=== PATIENT | female | born 1940 | race Caucasian/White ===

== ENCOUNTER 2019-05-26 18:51 | Inpatient (IN) ==
[2019-05-26] MEDS ORDERED: DOCUSATE SODIUM 100 MG CAPSULE PO PRN (22:53)
[2019-05-26] MEDS ORDERED: ACETAMINOPHEN 325 MG TABLET PO PRN (22:53)
[2019-05-26] MEDS ORDERED: ONDANSETRON 4 MG/2 ML VIAL IV PRN (22:53)
[2019-05-26] MEDS ORDERED: MAGNESIUM SULF RIDER 4 GM in PREMIX 1 EACH IV PRN (23:17)
[2019-05-26] MEDS ORDERED: MAGNESIUM SULF RIDER 2 GM in PREMIX 1 EACH IV PRN (23:17)
[2019-05-26 23:47] LABS: Thyroid Stimulating Hormone 2.36 uIU/ml (0.358-3.74)
[2019-05-27 02:05] LABS: Apearance,Urine CLOUDY (Clear); Bacteria,Urine Many /HPF (Few); Bilirubin,Urine Negative (Negative); Blood, Urine Moderate mg/dL (Negative); Glucose,Urine (UA) Negative (Negative); Ketones,Urine Negative (Negative); Mucus,Urine Many /LPF (Occasional); Nitrite,Urine Negative (Negative); Protein,Urine 30 MG/DL; Renal Epithelial Cells,Urine Many /HPF (<1); Squamous Epithelial Cell,Urine Occasional /HPF (0-10); Urine Color Amber (Yellow); Urine Specific Gravity 1.019 (1.001-1.035); WBC,Urine 322 /HPF (0-6)
[2019-05-27 03:18] LABS: Basophils % 0.7 % (0.0-0.8); Eosinophils # 0.3 10*3/uL (0.0-0.87); Eosinophils % 4.5 % (0.00-10.9); Hematocrit 35.4 VOL% (35.7-47.0); Hemoglobin 12.6 GM/DL (12.0-16.0); Immature Granulocytes % 0.5 %; Immature Granulocytes Absolute 0.03 #; Lymphocytes # 1.8 10*3/uL (1.4-4.0); Lymphocytes % 32.5 % (21.3-54.2); Mean Corpuscular HGB Conc 35.6 GM/DL (32-36); Mean Corpuscular Volume 100.3 FL (87-102); Mean Platelet Volume 10.2 FL (9.6-12.0); Monocytes % 17.5 % (1.7-12.7); NRBC # 0.02 10*3/uL; Neutrophils % 44.3 % (38.7-73.9); Platelet Count 109 T/CUMM (130-400); Red Blood Count 3.53 MC/CUMM (3.8-5.5); Red Cell Distribution Width 18.6 % (9.3-17.3); White Blood Count 5.6 T/CUMM (4-12)
[2019-05-27 03:47] LABS: Eosinophils 5 % (0-10); Total Cells Counted 100
[2019-05-27 03:48] LABS: Band Neutrophils 3 % (0-10); Hypochromasia 1+; Lymphocytes 30 % (20-55); Platelet Estimate Decreased; Segmented Neutrophils 48 % (50-85)
[2019-05-27 03:56] LABS: Albumin 2.2 G/DL (3.4-5.0); Calcium 8.5 MG/DL (8.5-10.1); Total Protein 5.5 G/DL (6.4-8.3)
[2019-05-27] MEDS: cefTRIAXone 1,000 MG in SYRINGE 1 EACH IV SCH (08:47)
[2019-05-27] MEDS: SODIUM CHLORIDE 0.9% 1,000 ML IV SCH ×3 (08:49→20:28)
[2019-05-27] MEDS ORDERED: MORPHINE 4 MG/1 ML VIAL IV PRN (13:21)
[2019-05-27] MEDS ORDERED: HALOPERIDOL 5 MG/ML AMP IV PRN (13:21)
[2019-05-27] MEDS ORDERED: diphenhydrAMINE 50 MG/1 ML VIAL IV PRN (13:23)
[2019-05-27] MEDS ORDERED: POTASSIUM CHLORIDE 20 MEQ TABLET PO ONE (16:12)
[2019-05-27] MEDS: POTASSIUM CHLORIDE 20 MEQ TABLET PO SCH (17:10)
[2019-05-27] MEDS: ENOXAPARIN 40 MG/0.4 ML SYRINGE SUBCUT SCH (17:33)
[2019-05-28 04:35] LABS: Basophils % 0.8 % (0.0-0.8); Eosinophils # 0.3 10*3/uL (0.0-0.87); Eosinophils % 5.4 % (0.00-10.9); Hemoglobin 11.9 GM/DL (12.0-16.0); Immature Granulocytes % 0.4 %; Immature Granulocytes Absolute 0.02 #; Lymphocytes # 1.9 10*3/uL (1.4-4.0); Lymphocytes % 38.8 % (21.3-54.2); Mean Corpuscular Volume 100.9 FL (87-102); Mean Platelet Volume 11.3 FL (9.6-12.0); Neutrophils % 36.6 % (38.7-73.9); Platelet Count 104 T/CUMM (130-400); Red Blood Count 3.37 MC/CUMM (3.8-5.5); Red Cell Distribution Width 18.7 % (9.3-17.3); White Blood Count 4.8 T/CUMM (4-12)
[2019-05-28 04:50] LABS: Calcium 8.1 MG/DL (8.5-10.1); Osmolality,Calculated 281.1 MOS/KG (273-304)
[2019-05-28 04:59] LABS: Eosinophils 6 % (0-10); Hypochromasia 1+; Lymphocytes 38 % (20-55); Platelet Estimate Decreased; Segmented Neutrophils 45 % (50-85); Total Cells Counted 100
[2019-05-28] MEDS: cefTRIAXone 1,000 MG in SYRINGE 1 EACH IV SCH (08:25)
[2019-05-28] MEDS: POTASSIUM CHLORIDE 20 MEQ TABLET PO SCH (08:26)
[2019-05-28] MEDS: SODIUM CHLORIDE 0.9% 1,000 ML IV SCH ×3 (09:49→22:42)
[2019-05-28] MEDS: FUROSEMIDE 20 MG/2 ML VIAL IV SCH (17:28)
[2019-05-28] MEDS: ENOXAPARIN 40 MG/0.4 ML SYRINGE SUBCUT SCH (17:29)
[2019-05-29] MEDS: cefTRIAXone 1,000 MG in SYRINGE 1 EACH IV SCH (08:45)
[2019-05-29] MEDS: POTASSIUM CHLORIDE 20 MEQ TABLET PO SCH (08:46)
[2019-05-29] MEDS: FUROSEMIDE 20 MG/2 ML VIAL IV SCH (08:46)
[2019-05-29] MEDS: LEVOTHYROXINE 25 MCG TABLET PO SCH (08:46)
[2019-05-29] MEDS: SODIUM CHLORIDE 0.9% 1,000 ML IV SCH ×2 (12:49→20:59)
[2019-05-29] MEDS: ENOXAPARIN 40 MG/0.4 ML SYRINGE SUBCUT SCH (17:34)
[2019-05-30] MEDS: SODIUM CHLORIDE 0.9% 1,000 ML IV SCH (06:58)
[2019-05-30] MEDS: LEVOTHYROXINE 25 MCG TABLET PO SCH (06:59)
[2019-05-30] MEDS: cefTRIAXone 1,000 MG in SYRINGE 1 EACH IV SCH (09:46)
[2019-05-30] MEDS: POTASSIUM CHLORIDE 20 MEQ TABLET PO SCH (09:46)
[2019-05-30] MEDS: FUROSEMIDE 20 MG/2 ML VIAL IV SCH (09:46)
[2019-05-30 10:32] LABS: Basophils # 0.1 10*3/uL (0.0-0.2); Basophils % 1.1 % (0.0-0.8); Eosinophils # 0.4 10*3/uL (0.0-0.87); Eosinophils % 7.8 % (0.00-10.9); Hematocrit 36.3 VOL% (35.7-47.0); Hemoglobin 12.9 GM/DL (12.0-16.0); Immature Granulocytes % 0.2 %; Immature Granulocytes Absolute 0.01 #; Lymphocytes # 1.8 10*3/uL (1.4-4.0); Lymphocytes % 40.5 % (21.3-54.2); Mean Corpuscular HGB Conc 35.5 GM/DL (32-36); Mean Corpuscular Volume 101.4 FL (87-102); Mean Platelet Volume 10.5 FL (9.6-12.0); Monocytes % 15.4 % (1.7-12.7); Platelet Count 110 T/CUMM (130-400); Red Blood Count 3.58 MC/CUMM (3.8-5.5); Red Cell Distribution Width 19.1 % (9.3-17.3); White Blood Count 4.5 T/CUMM (4-12)
[2019-05-30 10:49] LABS: Calcium 8.3 MG/DL (8.5-10.1)
[2019-05-30 11:08] LABS: Anisocytosis 2+; Eosinophils 13 % (0-10); Lymphocytes 20 % (20-55); Macrocytosis 1+; Platelet Estimate Adequate; Poikilocytosis 1+; Segmented Neutrophils 59 % (50-85); Smudge Cells Few; Total Cells Counted 100
[2019-05-30] MEDS: ENOXAPARIN 40 MG/0.4 ML SYRINGE SUBCUT SCH (17:16)
[2019-05-31] MEDS: LEVOTHYROXINE 25 MCG TABLET PO SCH (06:22)
[2019-05-31] MEDS: POTASSIUM CHLORIDE 20 MEQ TABLET PO SCH (08:55)
[2019-05-31] MEDS: FUROSEMIDE 20 MG/2 ML VIAL IV SCH (08:58)
[2019-05-31] MEDS: cefTRIAXone 1,000 MG in SYRINGE 1 EACH IV SCH (08:59)
[2019-05-31] MEDS: ENOXAPARIN 40 MG/0.4 ML SYRINGE SUBCUT SCH (17:04)
[2019-06-01] MEDS: LEVOTHYROXINE 25 MCG TABLET PO SCH (06:43)
[2019-06-01] MEDS: cefTRIAXone 1,000 MG in SYRINGE 1 EACH IV SCH (08:54)
[2019-06-01] MEDS: POTASSIUM CHLORIDE 20 MEQ TABLET PO SCH (08:56)
[2019-06-01] MEDS: FUROSEMIDE 20 MG/2 ML VIAL IV SCH (08:56)
[2019-06-01] MEDS: ENOXAPARIN 40 MG/0.4 ML SYRINGE SUBCUT SCH (18:04)
[2019-06-02] MEDS: LEVOTHYROXINE 25 MCG TABLET PO SCH (07:10)
[2019-06-02] MEDS ORDERED: cephALEXin 250 MG CAPSULE PO SCH (09:00)
[2019-06-02] MEDS: POTASSIUM CHLORIDE 20 MEQ TABLET PO SCH (09:15)
[2019-06-02] MEDS: FUROSEMIDE 20 MG/2 ML VIAL IV SCH (09:16)
[2019-06-02] MEDS ORDERED: MAGNESIUM SULF RIDER 4 GM in PREMIX 1 EACH IV ONE (09:16)
[2019-06-02 16:03] VITALS: BP 136/66
== END 2019-06-02 16:04 | disposition swing bed (61) | DRG 689 ==
LOC: N.TELEN → SUATTDRO 22:41
PROVIDERS: ADMIT Internal Medicine; ATTEND Internal Medicine